=== PATIENT | male | born 1945 | race Caucasian/White ===

== ENCOUNTER 2016-09-02 03:44 | Emergency (ER) | payer MEDICARE, MEDICAID ==
[2016-09-02] MEDS ORDERED: Ibuprofen 600 MG Tab PO ONE (04:54)
--- NOTE | 2016-09-02 04:54 | EDM.PDOC ---
<Keith Alvarado - Last Filed: 09/02/16 06:45> ED HPI GENERAL MEDICAL PROBLEM - General Chief Complaint: Lower Extremity Injury/Pain Stated Complaint: LEFT KNEE PAIN Time Seen by Provider: 09/02/16 03:59 Source of Information: Reports: Patient, Family, RN Notes Reviewed History Limitations: Reports: No Limitations - History of Present Illness INITIAL COMMENTS - FREE TEXT/NARRATIVE: The patient states that he developed left knee pain yesterday, 09/01/2016, around 17:00, but that it has become progressively worse. He now has significant pain even at rest, and he states that he cannot move his left knee due to pain. He has not had a fever or chills. He does not recall any injury to the knee. No prior similar symptoms. The patient states that he had a left total knee arthroplasty approximately 2006. He states that he has diabetes, but takes no medications for it, and has not had a general physical exam for about 5 years. The patient does not have a PCP. Left Knee Pain Score (Numeric/FACES): 10 - Related Data Allergies Allergy/AdvReac Type Severity Reaction Status Date / Time No Known Allergies Allergy Verified 09/02/16 03:56 Past Medical History Cardiovascular History: Reports: CAD, [place] Musculoskeletal History: Reports: Arthritis Endocrine/Metabolic History: Reports: Diabetes, Type II (untreated) Oncologic (Cancer) History: Reports: Basal Cell Carcinoma (right ear) - Past Surgical History Cardiovascular Surgical History: Reports: Coronary Artery Stent (x 1) GI Surgical History: Reports: Appendectomy Musculoskeletal Surgical History: Reports: Knee Replacement (left, approximately 2006) Dermatological Surgical History: Reports: Other (See Below) (excision of BCC from right ear) Social & Family History - Tobacco Use Smoking Status *Q: Current Every Day Smoker Years of Tobacco use: 55 Packs/Tins Daily: 1 - Alcohol Use Alcohol Use History: No - Recreational Drug Use Recreational Drug Use: No - Living Situation & Occupation Living situation: Reports: , with Family Occupation: Retired Review of Systems - Review of Systems Review Of Systems: See Below Constitutional: Reports: No Symptoms Eyes: Reports: No Symptoms Ears: Reports: No Symptoms Nose: Reports: No Symptoms Mouth/Throat: Reports: No Symptoms Respiratory: Reports: No Symptoms Cardiovascular: Reports: No Symptoms GI/Abdominal: Reports: No Symptoms Genitourinary: Reports: No Symptoms Musculoskeletal: Reports: No Symptoms Skin: Reports: No Symptoms Neurological: Reports: No Symptoms Psychiatric: Reports: No Symptoms ED EXAM, GENERAL - Physical Exam Exam: See Below Exam Limited By: No Limitations General Appearance: Alert, WD/WN, No Apparent Distress Extremities: Other (Considerable swelling to the left knee, when compared to the right, with calor, however, no visible erythema or rash. There is tenderness primarily to the anterior knee, although the patient reports pain throughout the knee. Pain is worsened with any attempt at PROM. Neurovascular status of the left lower extremity is intact.) Course - Vital Signs Last Recorded V/S: Last Vital Signs Temp 97.3 F 09/02/16 03:49 Pulse 99 09/02/16 11:00 Resp 16 09/02/16 11:00 BP 115/55 L 09/02/16 11:00 Pulse Ox 99 09/02/16 11:00 - Orders/Labs/Meds Orders: Active Orders 24 hr Category Date Time Status EKG 12 Lead [EKG Documentation Completion] [RC] STAT Care 09/02/16 09:54 Active ACID FAST BACILLI SMEAR [AFB] Stat Lab 09/02/16 08:25 Ordered CELL COUNT,BODY FLUID [BF] Stat Lab 09/02/16 08:25 Ordered CRYSTALS,BODY FLUID [BF] Stat Lab 09/02/16 08:25 Ordered CULTURE BODY FLUID + SMEAR [RM] Stat Lab 09/02/16 08:25 Ordered FUNGAL SMEAR [MYC] Stat Lab 09/02/16 08:25 Ordered PROTEIN,BODY FLUID [BF] Stat Lab 09/02/16 08:25 Ordered SYNOVIAL FLUID ANALYSIS [BF] Stat Lab 09/02/16 08:25 Ordered Vancomycin [Vancocin] 1.5 gm Med 09/02/16 12:11 Ordered Sodium Chloride 0.9% [Normal Saline] 250 ml IV ONETIME cefTRIAXone [Rocephin] 2 gm Med 09/02/16 12:11 Ordered Sodium Chloride 0.9% [Normal Saline] 100 ml IV ONETIME Joint Aspiration Panel Reflex [OM.PC] Click To Edit Oth 09/02/16 11:48 Ordered Labs: Laboratory Tests 09/02/16 09/02/16 09/02/16 Range/Units 04:40 04:40 09:35 WBC 16.89 H (4.23-9.07) K/mm3 RBC 5.09 (4.63-6.08) M/mm3 Hgb 15.0 (13.7-17.5) gm/L Hct 42.3 (40.1-51.0) % MCV 83.1 (79.0-92.2) fl MCH 29.5 (25.7-32.2) pg MCHC 35.5 (32.2-35.5) g/dl RDW Std Deviation 38.5 (35.1-43.9) fL Plt Count 336 (163-337) K/mm3 MPV 8.4 L (9.4-12.3) fl Neutrophils % (Manual) 78 H (40-60) % Band Neutrophils % 1 (0-10) % Lymphocytes % (Manual) 10 L (20-40) % Atypical Lymphs % 0 % Monocytes % (Manual) 11 H (2-10) % Eosinophils % (Manual) 0 L (0.8-7.0) % Basophils % (Manual) 0 L (0.2-1.2) Platelet Estimate Adequate Plt Morphology Comment Normal RBC Morph Comment Normal Sodium 130 L (136-145) mEq/L Potassium 4.0 (3.5-5.1) mEq/L Chloride 93 L (98-107) mEq/L Carbon Dioxide 24 (21-32) mEq/L Anion Gap 17.0 H (5-15) BUN 14 (7-18) mg/dL Creatinine 1.2 (0.7-1.3) mg/dL Est Cr Clr Drug Dosing TNP Estimated GFR (MDRD) 60 (>60) mL/min BUN/Creatinine Ratio 11.7 L (14-18) Glucose 362 H (83-115) mg/dL POC Glucose 314 H (83-110) mg/dL Calcium 9.2 (8.5-10.1) mg/dL Total Bilirubin 0.9 (0.2-1.0) mg/dL AST 18 (15-37) U/L ALT 20 (16-63) U/L Alkaline Phosphatase 100 (46-116) U/L Total Protein 8.2 (6.4-8.2) g/dl Albumin 3.3 L (3.4-5.0) g/dl Globulin 4.9 gm/dL Albumin/Globulin Ratio 0.7 L (1-2) Meds: Medications Discontinued Medications Generic Name Dose Route Start Last Admin Trade Name Patrick PRN Reason Stop Dose Admin Ibuprofen 600 mg 09/02/16 04:54 09/02/16 04:59 Motrin PO 09/02/16 04:55 600 mg ONETIME ONE Administration Insulin Human Regular 10 unit 09/02/16 05:14 09/02/16 05:21 Humulin R SUBCUT 09/02/16 05:15 10 units ONETIME STA Administration Protocol Insulin Human Regular 10 unit 09/02/16 06:35 09/02/16 06:39 Humulin R SUBCUT 09/02/16 06:36 10 units ONETIME STA Administration Protocol - Re-Assessments/Exams Free Text/Narrative Re-Assessment/Exam: 09/02/16 05:15 The patient's blood glucose is elevated at 362. The patient has agreed to letting me treat him with some insulin. His sodium is so depressed at 130, which corrects to 133, based on his blood glucose. His WBC count is elevated at 16.89, suggestive of infection. 09/02/16 05:[address] Longo at 15:22. He feels that antibiotics are of no use at this time, if the hardware is infected. He feels the patient will need an infectious disease consult, and therefore he is recommending that we transfer the patient to [place]. 09/02/16 05:26 The above was discussed with the patient. He is agreeable to being transferred to [place]. He does not have a preference of [facility] versus [facility]. 09/02/16 05:40 Case discussed with [facility] at [facility]. Ortho is not currently available - they may be in transit. She will call me back when she is able to reach an Orthopedic Surgeon. 09/02/16 06:[address] Valdez Caputo, orthopedic surgeon manager installation at [facility]. He tentatively accepts the patient for transfer, however, he wants to first check to see if Dr. Chun, his partner, can perform the procedure here, because once the hardware is removed, the patient will require 6 weeks of IV antibiotics. He will check with Dr. Chun and get back to us. Dr. Caputo agrees that antibiotics are of no use at this time. Also notified by Barbara, the patient's nurse, that she rechecked his blood sugar. It has been about one hour since he received the insulin, and his Accu-Chek is still about 400. I have ordered an additional 10 units of regular insulin. 09/02/16 06:[address] Chun at 06:43. He is willing to accept the patient. He will come by the ED shortly to tap the knee and discuss the plan of treatment with the patient. 09/02/16 07:[address] Beltran, and care of the patient turned over to him at this time, for disposition. 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 Qualifiers: Encounter type: initial encounter Qualified Code(s): T84.7XXA - Infection and inflammatory reaction due to other internal orthopedic prosthetic devices, implants and grafts, initial encounter - Discharge Information - My Orders Last 24 Hours: My Active Orders 09/02/16 09:54 EKG 12 Lead [EKG Documentation Completion] [RC] STAT 09/02/16 12:11 Vancomycin [Vancocin] 1.5 gm Sodium Chloride 0.9% [Normal Saline] 250 ml IV ONETIME cefTRIAXone [Rocephin] 2 gm Sodium Chloride 0.9% [Normal Saline] 100 ml IV ONETIME - Assessment/Plan Last 24 Hours: My Active Orders 09/02/16 09:54 EKG 12 Lead [EKG Documentation Completion] [RC] STAT 09/02/16 12:11 Vancomycin [Vancocin] 1.5 gm Sodium Chloride 0.9% [Normal Saline] 250 ml IV ONETIME cefTRIAXone [Rocephin] 2 gm Sodium Chloride 0.9% [Normal Saline] 100 ml IV ONETIME <Sandeep Beltran - Last Filed: 09/02/16 12:24> Course - Re-Assessments/Exams Free Text/Narrative Re-Assessment/Exam: 09/02/16 12:13 Dr Beltran taking over for Dr Alvarado. Dr Chun came to evaluate the patient and he tapped his knee and sent the synovial fluid for analysis. He was willing to perform any procedures here. He requested the hospitalist service come see the patient and admit him and medically clear him for surgery. Dr Puckett came and evaluated him after rounds and she had concerns. The patient had stents 10 years ago and currently he cannot walk 40 steps without being admitted. She is worried he may have more CAD. The patient is not taking any medications. He has not seen a doctor for 5 years. He is now a diabetic. She recommended the patient be transferred to [facility] to have a hull outfit supervisor consult and help clear him for surgery. I called Dr Almonte the hospitalist at [facility] in [place] and he accepted the patient. The patient is being delayed for surgery now and we discussed starting antibiotics. I have ordered rocephin 2 grams IV and vancomycin 1.5grams IV. I will send him by ambulance. 09/02/16 12:23 Departure - Departure Time of Disposition: 12:30 Condition: Fair
[2016-09-02] MEDS ORDERED: Insulin Regular, Human 100 Units/ML 3 ML Vial SUBCUT STA ×2 (05:14→06:35)
--- NOTE | 2016-09-02 09:57 | CR ---
Left knee: Four views of the left knee were obtained. Comparison: No previous knee exam. Vascular calcification is seen. Other calcifications seen within the posterior soft tissues most likely dystrophic and incidental. Knee prosthesis is noted. Components are aligned. No joint effusion is seen. No acute fracture or other abnormality is appreciated. Impression: 1. Vascular calcification and other soft tissue calcifications. 2. Knee prosthesis which appears normal in alignment. 3. Nothing acute is identified. Diagnostic code #2
--- NOTE | 2016-09-02 09:57 | CR ---
Lumbar spine: AP, lateral and coned-down lateral views centered to the lumbosacral junction were obtained. Minimal posterior disc space narrowing is seen throughout the lumbar spine. Vertebral body heights are maintained. Scattered anterior and lateral osteophytes are seen throughout the lower thoracic and lumbar spine. Pedicles as well as visualized transverse and spinous processes are intact. Mild vascular calcification is seen. Impression: 1. Mild diffuse degenerative change as described above. Diagnostic code #2
[2016-09-02] MEDS ORDERED: cefTRIAXone 2 GM in Sodium Chloride 0.9% 100 ML IV ONE (12:11)
[2016-09-02] MEDS ORDERED: Vancomycin 1 GM, Vancomycin 500 MG in Sodium Chloride 0.9% 500 ML IV ONE (12:30)
[2016-09-02 13:06] VITALS: BP 128/75
--- NOTE | 2016-09-12 12:14 | PCM.CONS ---
H&P History of Present Illness - General Date of Service: 10/03/16 Source of Information: Patient, Family - History of Present Illness Initial Comments - Free Text/Narative: This is a 71 year old male who has had increasing left knee pain over the last day and now is unable to move or weight bear on his left knee. He states he had a left total knee done about 10 years ago in [place] and has not really seen any doctors in the last 10 years. He has a significant cardiac history. He states he has been running a fever and his knee has become more swollen and painful over the last day. He has not had any injury or recent illness or dental work. Patient before this states he has had no pain and had been doing well. ER was concerned for possible infection and we were contacted. Left Knee Pain Score (Numeric/FACES): 4 - Related Data Allergies/Adverse Reactions: Allergies Allergy/AdvReac Type Severity Reaction Status Date / Time No Known Allergies Allergy Verified 09/02/16 03:56 Past Medical History Cardiovascular History: Reports: CAD, [place] Gastrointestinal History: Reports: Hemorrhoids Musculoskeletal History: Reports: Arthritis Psychiatric History: Reports: Depression Endocrine/Metabolic History: Reports: Diabetes, Type II (untreated) Oncologic (Cancer) History: Reports: Basal Cell Carcinoma (right ear) Dermatologic History: Reports: Melanoma - Past Surgical History Cardiovascular Surgical History: Reports: Coronary Artery Stent (x 1) GI Surgical History: Reports: Appendectomy Musculoskeletal Surgical History: Reports: Knee Replacement (left, approximately 2006) Dermatological Surgical History: Reports: Other (See Below) (excision of BCC from right ear) Social & Family History - Tobacco Use Smoking Status *Q: Current Every Day Smoker Years of Tobacco use: 55 Packs/Tins Daily: 1 Used Tobacco, but Quit: No - Recreational Drug Use Recreational Drug Use: No - Living Situation & Occupation Living situation: Reports: , with Family Occupation: Retired H&P Review of Systems - Review of Systems: Review Of Systems: ROS reveals no pertinent complaints other than HPI. Exam - Exam Exam: See Below - Vital Signs Vital Signs: Last Vital Signs Temp 36.3 C 09/02/16 03:49 Pulse 99 09/02/16 13:03 Resp 16 09/02/16 13:03 BP 128/75 09/02/16 13:03 Pulse Ox 100 09/02/16 13:03 Weight: 83.915 kg - Exam Physical Exam Comments:: LLE: left knee with 3+effusion, warm to touch, skin intact, no pain with log roll of left hip, knee in semiflexed position at 30 degrees, pain with attempted passive or active range of motion, decrease peripheral pulses 1+ bilaterally, otherwise neurologically intact - Patient Data Result Diagrams: 09/02/16 04:40 09/02/16 04:40 Consult PN Assessment/Plan Procedures: Procedures ASSAY OF PROTEIN OTHER (09/02/16) COMPLETE CBC W/AUTO DIFF WBC (09/02/16) COMPREHEN METABOLIC PANEL (09/02/16) CULTURE OTHR SPECIMN AEROBIC (09/02/16) DRAIN/INJ JOINT/BURSA W/O US (09/02/16) ELECTROCARDIOGRAM TRACING (09/02/16) EMERGENCY DEPT VISIT (09/02/16) EXAM SYNOVIAL FLUID CRYSTALS (09/02/16) GLUCOSE BLOOD TEST (09/02/16) ROUTINE VENIPUNCTURE (09/02/16) SMEAR GRAM STAIN (09/02/16) THER/PROPH/DIAG INJ SC/IM (09/02/16) THER/PROPH/DIAG IV INF INIT (09/02/16) TISSUE EXAM FOR FUNGI (09/02/16) TX/PRO/DX INJ NEW DRUG ADDON (09/02/16) X-RAY EXAM KNEE 4 OR MORE (09/02/16) X-RAY EXAM L-S SPINE 2/3 VWS (09/02/16) Problem List Initiated/Reviewed/Updated: Yes Plan: A: 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 At this time to confirm it we will need to aspirate the knee and send it for lab analysis. At this time we aspirated it and it had negative string sign with yellowish turbid fluid. This was sent to the lab along with for Synovasure testing. After this the hospitalist was contacted and secondary to the patients cardiac history they decided they would feel more comfortable if they patient was sent to [facility]. Dr. Delong was contacted and will accept care at this time.
--- NOTE | 2016-09-12 13:11 | OR ---
DATE OF OPERATION: 09/02/2016 SURGEON: Luis Chun MD OPERATION PERFORMED: Aspiration of left total knee arthroplasty. PREOPERATIVE DIAGNOSIS: Infected left total knee arthroplasty. POSTOPERATIVE DIAGNOSIS: Infected left total knee arthroplasty. ANESTHESIA: None. COMPLICATIONS: None. CONDITION: Stable. ESTIMATED BLOOD LOSS: Not applicable. ADDING MACHINE OPERATOR: None. DESCRIPTION OF PROCEDURE: The patient was identified in the emergency room, proper site was marked and identified. The patient signed an informed consent. At this time, under sterile technique, 30 mL of yellow fluid was aspirated from the left knee with a cloudy turbid looking appearance. At this time, this was sent for laboratory and Synovasure testing. The patient tolerated it well and a bandage was placed over the left knee in compression technique. The patient tolerated it well, be sent to the floor for further workup. MMODAL /[id number]
== END 2016-09-02 13:05 ==
LOC: JD.ED 03:44
DX: T84.7XXA Infection and inflammatory reaction due to other internal orthopedic prosthetic devices, implants and grafts, initial encounter (principal); E11.65 Type 2 diabetes mellitus with hyperglycemia; I25.10 Atherosclerotic heart disease of native coronary artery without angina pectoris; I25.2 Old myocardial infarction; F17.210 Nicotine dependence, cigarettes, uncomplicated; Z96.652 Presence of left artificial knee joint
CPT/HCPCS: 20610; 36415; 72100; 73564; 80053; 82962; 84157; 85025; 87070; 87205; 87220; 89060; 93005; 96365; 96372; 96375; 99285; A9270; J0696; J1817; J3370; J7030; J7040; 87015; 87077; 87102; 87116; 87186; 87206; 99284

== ENCOUNTER 2022-01-09 17:34 | Emergency (ER) | payer MEDICARE ==
[2022-01-09 18:01] VITALS: BP 109/65; PULSE 70
[2022-01-09] MEDS ORDERED: Sodium Chloride 0.9% 10 ML Syringe FLUSH PRN (18:09)
[2022-01-09] MEDS ORDERED: Iopamidol 755 Mg/ML 100 ML Bottle IVPUSH ONE (18:31)
[2022-01-09] MEDS ORDERED: Sodium Chloride 0.9% 10 ML Syringe FLUSH ONE (18:31)
[2022-01-09] MEDS ORDERED: Sodium Chloride 0.9% 100 ML IV SCH (18:45)
[2022-01-09] MEDS ORDERED: Sodium Chloride 0.9% 1,000 ML IV ONE (20:22)
[2022-01-09] MEDS: Aspirin 81 MG Tab.Chew PO ONE ×2 (21:13→21:59)
[2022-01-09] MEDS ORDERED: Aspirin 300 MG Supp ONE (21:55)
[2022-01-09] MEDS ORDERED: Lactated Ringers 1,000 ML IV SCH (22:15)
[2022-01-10] MEDS ORDERED: Aspirin 300 MG Supp RECTAL SCH (21:00)
== END 2022-01-09 22:50 ==
LOC: SUPCPDRO 17:34 → JD.ED 17:34
DX: M97.12XA Periprosthetic fracture around internal prosthetic left knee joint, initial encounter (principal); I63.9 Cerebral infarction, unspecified; I25.10 Atherosclerotic heart disease of native coronary artery without angina pectoris; I25.2 Old myocardial infarction; E11.9 Type 2 diabetes mellitus without complications; W01.0XXA Fall on same level from slipping, tripping and stumbling without subsequent striking against object, initial encounter; Y93.01 Activity, walking, marching and hiking; Y92.002 Bathroom of unspecified non-institutional (private) residence as the place of occurrence of the external cause
CPT/HCPCS: 36415; 70450; 70496; 70498; 73560; 80053; 82947; 84484; 85025; 85610; 85730; 93005; 96360; 99285; A9270; J3490; J7030; J7120; Q9967